=== PATIENT | male | born 1965 | race Two or more races ===

== ENCOUNTER 2021-09-28 06:45 | Day surgery (SDC) | payer OTHER ==
[~2021-09-28 06:45] MED LIST: ATORVASTATIN CA20 MG PO; COZAAR50 MG PO; FLUOXETINE PO; HYDROCHLOROTH12.5 MG PO
[2021-09-28] MEDS ORDERED: PERCOCET 5-3251 EACH PO (14:09)
== END 2021-09-28 14:50 | disposition home or self-care (01) ==
LOC: CIR.AMB 06:45
PROVIDERS: ATTEND Surgery
DX: C20 Malignant neoplasm of rectum (principal); I10 Essential (primary) hypertension; E78.5 Hyperlipidemia, unspecified; Z86.16 Personal history of COVID-19; Z87.891 Personal history of nicotine dependence; Z20.822 Contact with and (suspected) exposure to COVID-19

== ENCOUNTER 2022-05-15 09:00 | Inpatient (IN) | payer OTHER ==
[~2022-05-15] VITALS: Ht 180.3 cm; Wt 99.8 kg
[~2022-05-15 09:00] MED LIST changes: +PERCOCET 5-3251 EACH PO
[2022-05-15] MEDS ORDERED: HYZAAR 50-12.51 EACH (12:24)
[2022-05-15] MEDS ORDERED: ULTRAM50 MG (12:25)
[2022-05-21] MEDS ORDERED: FLUOXETINE HCL20 M1 (14:19)
[2022-05-21] MEDS ORDERED: GABAPENTIN300 M2 (14:20)
[2022-05-21] MEDS ORDERED: FAMOTIDINE20 MG (14:20)
[2022-05-21] MEDS ORDERED: PANTOPRAZOLE SO20 MG (14:21)
[2022-05-21] MEDS ORDERED: DEXAMETHASO4 MG/1 M1 (14:21)
[2022-05-24] MEDS ORDERED: PERCOCET 5-3251 EACH PO (10:37)
== END 2022-05-24 14:44 | disposition home or self-care (01) | DRG 330 ==
LOC: SURH 05-21 07:00 → O/R 05-21 07:10 → SURH 05-21 09:00
PROVIDERS: ADMIT Surgery; ATTEND Surgery
PROC: 0DBP4ZZ Excision of Rectum, Percutaneous Endoscopic Approach (ICD-10-PCS; 2022-05-21)
PROC: 07BC4ZZ Excision of Pelvis Lymphatic, Percutaneous Endoscopic Approach (ICD-10-PCS; 2022-05-21)
PROC: 3E0F7SF Introduction of Other Gas into Respiratory Tract, Via Natural or Artificial Opening (ICD-10-PCS; 2022-05-21)
PROC: 0D1B4Z4 Bypass Ileum to Cutaneous, Percutaneous Endoscopic Approach (ICD-10-PCS; principal; 2022-05-21 07:00)
PROC: 4A12X4Z Monitoring of Cardiac Electrical Activity, External Approach (ICD-10-PCS; 2022-05-22)
DX: C20 Malignant neoplasm of rectum (principal); K62.5 Hemorrhage of anus and rectum; R59.0 Localized enlarged lymph nodes; K62.89 Other specified diseases of anus and rectum; Z92.21 Personal history of antineoplastic chemotherapy

== ENCOUNTER 2022-05-27 06:59 | Emergency (ER) | payer OTHER ==
[~2022-05-27] VITALS: Ht 152.4 cm; Wt 99.8 kg
[~2022-05-27 06:59] MED LIST changes: +DEXAMETHASO4 MG/1 M1; +FAMOTIDINE20 MG; +FLUOXETINE HCL20 M1; +GABAPENTIN300 M2; +HYZAAR 50-12.51 EACH; +PANTOPRAZOLE SO20 MG; +ULTRAM50 MG
== END 2022-05-27 09:08 | disposition home or self-care (01) ==
LOC: ER 06:59
DX: K94.03 Colostomy malfunction (principal)

== ENCOUNTER 2022-06-01 03:55 | Inpatient (IN) | payer OTHER ==
[~2022-06-01] VITALS: Ht 177.8 cm; Wt 96.2 kg
[2022-06-06] MEDS ORDERED: IMODIUM A-D2 MG PO (10:47)
== END 2022-06-06 16:03 | disposition home or self-care (01) | DRG 389 ==
LOC: ER 03:55 → SURG 10:01 → SURH 06-04 15:33
PROVIDERS: ADMIT Surgery; ATTEND Surgery
PROC: BW21YZZ Computerized Tomography (CT Scan) of Abdomen and Pelvis using Other Contrast (ICD-10-PCS; 2022-06-01)
PROC: 02HV33Z Insertion of Infusion Device into Superior Vena Cava, Percutaneous Approach (ICD-10-PCS; principal; 2022-06-02)
DX: K56.699 Other intestinal obstruction unspecified as to partial versus complete obstruction (principal); C20 Malignant neoplasm of rectum; K62.89 Other specified diseases of anus and rectum; Z93.2 Ileostomy status

== ENCOUNTER 2023-01-06 10:15 | Inpatient (IN) | payer OTHER ==
[~2023-01-06] VITALS: Ht 180.3 cm; Wt 92.1 kg
[~2023-01-06 10:15] MED LIST changes: +IMODIUM A-D2 MG PO
[2023-01-07] MEDS ORDERED: HORIZANT300 MG PO (13:38)
[2023-01-07] MEDS ORDERED: SINGULAIR10 MG PO (13:39)
[2023-01-07] MEDS ORDERED: BENZONATATE150 MG PO (13:39)
[2023-01-07] MEDS ORDERED: ALL DAY ALLERGY10 M3 PO (13:39)
[2023-01-07] MEDS ORDERED: ATROVENT HFA12.9 GM IH (13:40)
[2023-01-12] MEDS ORDERED: PERCOCET 5-3251 EACH PO (10:55)
[2023-01-12] MEDS ORDERED: HYOSCYAMINE0.125 M1 SL (10:55)
== END 2023-01-12 14:26 | disposition home or self-care (01) | DRG 348 ==
LOC: SURH 01-10 08:18 → O/R 01-10 08:18 → SURH 01-10 08:45
PROVIDERS: ADMIT Surgery; ATTEND Surgery
PROC: 0DBB4ZZ Excision of Ileum, Percutaneous Endoscopic Approach (ICD-10-PCS; principal; 2023-01-10 08:45)
DX: C20 Malignant neoplasm of rectum (principal); K62.5 Hemorrhage of anus and rectum; R59.0 Localized enlarged lymph nodes; Z43.3 Encounter for attention to colostomy; Z43.2 Encounter for attention to ileostomy

== ENCOUNTER 2023-01-13 06:36 | Inpatient (IN) | payer OTHER ==
[~2023-01-13] VITALS: Ht 180.3 cm; Wt 92.1 kg
[~2023-01-13 06:36] MED LIST changes: +ALL DAY ALLERGY10 M3 PO; +ATROVENT HFA12.9 GM IH; +BENZONATATE150 MG PO; +HORIZANT300 MG PO; +HYOSCYAMINE0.125 M1 SL; +SINGULAIR10 MG PO
--- NOTE | 2023-01-13 06:44 | NUR ---
PTE ALERTA Y ORIENTADO EN TORIE BETO ESFERAS, REFIERE DOLOR EPIGASTRICO, ACIDEZ Y VOMITOS X3 3 DESDE LA NOCHE DE [place]. SE REALIZA EKG, SE PRESENTA A DR VARGAS Y SE UBICA EN AREA DE OBSERVACION.
--- NOTE | 2023-01-13 07:23 | NUR ---
SE RECIBE PTE DE TURNO ANTERIOR, ALERTA Y ORIENTADO X3, PTE EVALUADO POR QUIEN INDICA TX, SE ADMINISTRAN MEDICAMENTOS SANTIAGO ORDEN MEDICA Y SIGUIENDO MEDIDAS ASEPTICAS. PTE REFIERE ENTENDER Y ACEPTAR.
--- NOTE | 2023-01-13 15:05 | NUR ---
SE RECIBE PTE ALERTA ORIENTADO X3 EN KAYLA CON BARANDAS ELEVADAS POR CONLEY SEGURIDAD EN COMPANIA DE FAMILIAR.VENOPUNCION PATENTE YASIR DE EDEMA Y ERITEMA RECIBIENDO 0.9NSS BAJANDO 200ML/HR.PENDIENTE LECTURA DE CT PARA REEVALUAR.
[2023-01-26] MEDS ORDERED: INTEGRA F CAPS1 EACH PO (12:28)
[2023-01-26] MEDS ORDERED: TRAM1TAB98 PO (12:28)
[2023-01-26] MEDS ORDERED: INTESTINEX680 M1 PO (12:28)
[2023-01-26] MEDS ORDERED: PEPCID AC20 MG PO (12:28)
== END 2023-01-26 12:57 | disposition home or self-care (01) | DRG 390 ==
LOC: ER 06:36 → SURG 16:59 → SURH 16:59
PROVIDERS: ADMIT Surgery; ATTEND Surgery
PROC: BW21YZZ Computerized Tomography (CT Scan) of Abdomen and Pelvis using Other Contrast (ICD-10-PCS; principal; 2023-01-13)
PROC: 02HV33Z Insertion of Infusion Device into Superior Vena Cava, Percutaneous Approach (ICD-10-PCS; 2023-01-20)
DX: K56.50 Intestinal adhesions [bands], unspecified as to partial versus complete obstruction (principal); K21.9 Gastro-esophageal reflux disease without esophagitis; I10 Essential (primary) hypertension; Z20.822 Contact with and (suspected) exposure to COVID-19